=== PATIENT | female | born 1960 | race Asian ===

== ENCOUNTER → 2016-07-13 | Outpatient (CLI) | payer MEDICAID, BC ==
--- NOTE | 2016-07-15 08:18 | MM ---
Reason for exam: screening (asymptomatic). Last mammogram was performed 6 years and 3 months ago. History: Patient is postmenopausal. Benign excisional biopsy of the left breast, 1983. Took hormonal contraceptives for 5 years. Physical Findings: A clinical breast exam by your physician is recommended on an annual basis and results should be correlated with mammographic findings. MG 3D Screening Mammo W/Cad Bilateral CC and MLO view(s) were taken. Prior study comparison: April 08, 2010, bilateral digital screening mammogram. The breast tissue is heterogeneously dense. This may lower the sensitivity of mammography. No significant changes when compared with prior studies. ASSESSMENT: Negative, BI-RAD 1 RECOMMENDATION: Routine screening mammogram of both breasts in 1 year.
== END | disposition home or self-care (01) ==
LOC: RADMAMWWP 14:50
PROVIDERS: ATTEND Internal Medicine
DX: Z12.31 Encounter for screening mammogram for malignant neoplasm of breast (principal)
CPT/HCPCS: 77052; 77063; G0202

== ENCOUNTER → 2020-01-11 | Outpatient (CLI) | payer MEDICAID, BC | END | disposition home or self-care (01) | LOC: LABWHC1 08:18 | PROVIDERS: ATTEND Pediatrics Pediatric Infectious Diseases | DX: Z11.59 Encounter for screening for other viral diseases (principal) | CPT/HCPCS: U0003; C9803 ==

== ENCOUNTER 2020-01-20 04:16 | Observation (INO) | payer MEDICAID, BC ==
[2020-01-20] MEDS ORDERED: ASPIRIN 81 MG PO STA (04:50)
[2020-01-20] MEDS ORDERED: MECLIZINE 12.5 MG TAB PO STA (04:50)
[2020-01-20 05:08] LABS: Basophils % (A) 1 %; Eosinophils # (A) 0.2 k/uL (0-0.7); Eosinophils % (A) 3 %; HCT 35.9 % (34.0-46.0); HGB 11.8 gm/dL (11.4-16.0); Lymphocytes % (A) 38 %; MCH 28.2 pg (25.0-35.0); MCHC 32.7 g/dL (31.0-37.0); MCV 86.2 fL (80.0-100.0); Mean Platelet Volume 7.3; Monocytes # (A) 0.3 k/uL (0-1.0); Monocytes % (A) 5 %; Neutrophils # (A) 2.7 k/uL (1.3-7.7); Neutrophils % (A) 51 %; Platelet Count 188 k/uL (150-450); RBC 4.17 m/uL (3.80-5.40); RDW 12.5 % (11.5-15.5); WBC 5.3 k/uL (3.8-10.6)
[2020-01-20 05:33] LABS: Partial Thromboplastin Time 23.4 sec (22.0-30.0); Prothrombin Time 10.1 sec (9.0-12.0)
[2020-01-20 05:35] LABS: ALT 8 U/L (4-34); AST 26 U/L (14-36); African American GFR (CKD) >90 (>60 ml/min/1.73 sqM); Albumin 4.4 g/dL (3.5-5.0); Alkaline Phosphatase 53 U/L (38-126); Anion Gap 8 mmol/L; Blood Urea Nitrogen 18 mg/dL (7-17); Calcium 9.3 mg/dL (8.4-10.2); Carbon Dioxide 26 mmol/L (22-30); Chloride 103 mmol/L (98-107); Glucose 99 mg/dL (74-99); Magnesium 1.8 mg/dL (1.6-2.3); Non-African American GFR(CKD) >90 (>60 ml/min/1.73 sqM); Potassium 3.4 mmol/L (3.5-5.1); Sodium 137 mmol/L (137-145); Total Bilirubin 0.4 mg/dL (0.2-1.3); Total Protein 7.4 g/dL (6.3-8.2)
[2020-01-20] MEDS ORDERED: NITROGLYCERIN SL TABS 0.4 MG TAB SUBLINGUAL PRN (06:55)
[2020-01-20] MEDS ORDERED: POTASSIUM CHLORIDE ER 20 MEQ TAB.ER PO STA ×2 (07:03→09:20)
--- NOTE | 2020-01-20 07:03 | ED ---
General Adult HPI - General Chief complaint: Dizziness Stated complaint: Confusion,Dizziness,Nausea Time Seen by Provider: 01/20/20 04:38 Source: patient Mode of arrival: ambulatory Limitations: no limitations - History of Present Illness Initial comments: This patient is a 59-year-old woman who presents to be evaluated for constellation of symptoms that came on when she woke up this morning. Patient states that she had been sleeping and then woke up feeling very disoriented and not sure where she was. She also noticed that when she sat upright she was feeling very lightheaded like she may pass out. She is also describing it as a dizzy feeling but not vertiginous. The patient also noted pain along the left jaw, her neck and radiation to left upper extremity with some numbness and tingling. Patient had a similar episode and was seen by certified ophthalmic technician as well as having echocardiogram and carotid Doppler, but then on no further follow-up. -: hour(s) Location: neck, chest Radiation: extremity Quality: aching Consistency: constant Improves with: none Worsens with: none Associated Symptoms: other (Lightheaded) Treatments Prior to Arrival: none - Related Data Home Medications Medication Instructions Recorded Confirmed Aspirin 325 mg PO DAILY PRN 03/30/16 03/30/16 Ibuprofen [Motrin] 200 - 400 mg PO Q6H PRN 03/30/16 03/30/16 Allergies Allergy/AdvReac Type Severity Reaction Status Date / Time No Known Allergies Allergy Verified 01/20/20 04:30 Review of Systems ROS Statement: Those systems with pertinent positive or pertinent negative responses have been documented in the HPI. ROS Other: All systems not noted in ROS Statement are negative. Constitutional: Denies: fever, chills Respiratory: Denies: cough, dyspnea Cardiovascular: Reports: chest pain. Denies: palpitations, orthopnea, syncope Gastrointestinal: Denies: abdominal pain, nausea, vomiting, diarrhea, melena, hematochezia Genitourinary: Denies: dysuria Musculoskeletal: Denies: back pain Skin: Denies: rash Neurological: Denies: headache, weakness, numbness Past Medical History Past Medical History: No Reported History, Hyperlipidemia Past Surgical History: Tubal Ligation Past Psychological History: No Psychological Hx Reported Smoking Status: Never smoker Past Alcohol Use History: None Reported Past Drug Use History: None Reported General Exam Limitations: no limitations General appearance: alert, in no apparent distress Head exam: Present: atraumatic, normocephalic Eye exam: Present: normal appearance. Absent: scleral icterus, conjunctival injection Neck exam: Present: normal inspection, full ROM Respiratory exam: Present: normal lung sounds bilaterally. Absent: respiratory distress, wheezes, rales, rhonchi, stridor Cardiovascular Exam: Present: regular rate, normal rhythm, normal heart sounds. Absent: systolic murmur, diastolic murmur, rubs, gallop GI/Abdominal exam: Present: soft. Absent: distended, tenderness, guarding, rebound, rigid Extremities exam: Present: normal inspection, normal capillary refill. Absent: pedal edema, calf tenderness Back exam: Present: normal inspection. Absent: CVA tenderness (R), CVA tenderness (L) Neurological exam: Present: alert Skin exam: Present: warm, dry, intact, normal color. Absent: rash Course Vital Signs 01/20/20 01/20/20 01/20/20 04:26 05:30 06:55 Temperature 98.0 F 98.2 F 97.5 F L Pulse Rate 57 L 52 L 58 L Respiratory 16 16 16 Rate Blood Pressure 120/76 117/72 121/68 O2 Sat by Pulse 99 97 99 Oximetry EKG Findings - EKG Results: EKG: interpreted by TAMERA, sinus rhythm (Rate 54 bpm), normal axis, normal ST/T EKG shows: bradycardia - Blocks, [place], Hypertrophy, ST Abn: AV and intraventricular conduction: right bundle branch block (f ixed/intermittent, complete/incomplete) (Incomplete) Medical Decision Making - Medical Decision Making This patient is a 59-year-old woman presenting to be evaluated for a constellation of symptoms including neck and left upper extremity pain that were relieved with the nitroglycerin here. Her initial workup is negative. Patient be admitted for serial cardiac enzymes and telemetry monitoring as well as cardiology consultation. - Lab Data Result diagrams: 01/20/20 05:00 01/20/20 05:12 Lab Results 01/20/20 01/20/20 01/20/20 Range/Units 05:00 05:12 05:12 WBC 5.3 (3.8-10.6) k/uL RBC 4.17 (3.80-5.40) m/uL Hgb 11.8 (11.4-16.0) gm/dL Hct 35.9 (34.0-46.0) % MCV 86.2 (80.0-100.0) fL MCH 28.2 (25.0-35.0) pg MCHC 32.7 (31.0-37.0) g/dL RDW 12.5 (11.5-15.5) % Plt Count 188 (150-450) k/uL Neutrophils % 51 % Lymphocytes % 38 % Monocytes % 5 % Eosinophils % 3 % Basophils % 1 % Neutrophils # 2.7 (1.3-7.7) k/uL Lymphocytes # 2.0 (1.0-4.8) k/uL Monocytes # 0.3 (0-1.0) k/uL Eosinophils # 0.2 (0-0.7) k/uL Basophils # 0.0 (0-0.2) k/uL PT (9.0-12.0) sec INR (<1.2) APTT (22.0-30.0) sec Sodium 137 (137-145) mmol/L Potassium 3.4 L (3.5-5.1) mmol/L Chloride 103 (98-107) mmol/L Carbon Dioxide 26 (22-30) mmol/L Anion Gap 8 mmol/L BUN 18 H (7-17) mg/dL Creatinine 0.64 (0.52-1.04) mg/dL Est GFR (CKD-EPI)AfAm >90 (>60 ml/min/1.73 sqM) Est GFR (CKD-EPI)NonAf >90 (>60 ml/min/1.73 sqM) Glucose 99 (74-99) mg/dL Calcium 9.3 (8.4-10.2) mg/dL Magnesium 1.8 (1.6-2.3) mg/dL Total Bilirubin 0.4 (0.2-1.3) mg/dL AST 26 (14-36) U/L ALT 8 (4-34) U/L Alkaline Phosphatase 53 (38-126) U/L Troponin I <0.012 (0.000-0.034) ng/mL Total Protein 7.4 (6.3-8.2) g/dL Albumin 4.4 (3.5-5.0) g/dL 01/20/20 Range/Units 05:12 WBC (3.8-10.6) k/uL RBC (3.80-5.40) m/uL Hgb (11.4-16.0) gm/dL Hct (34.0-46.0) % MCV (80.0-100.0) fL MCH (25.0-35.0) pg MCHC (31.0-37.0) g/dL RDW (11.5-15.5) % Plt Count (150-450) k/uL Neutrophils % % Lymphocytes % % Monocytes % % Eosinophils % % Basophils % % Neutrophils # (1.3-7.7) k/uL Lymphocytes # (1.0-4.8) k/uL Monocytes # (0-1.0) k/uL Eosinophils # (0-0.7) k/uL Basophils # (0-0.2) k/uL PT 10.1 (9.0-12.0) sec INR 1.0 (<1.2) APTT 23.4 (22.0-30.0) sec Sodium (137-145) mmol/L Potassium (3.5-5.1) mmol/L Chloride (98-107) mmol/L Carbon Dioxide (22-30) mmol/L Anion Gap mmol/L BUN (7-17) mg/dL Creatinine (0.52-1.04) mg/dL Est GFR (CKD-EPI)AfAm (>60 ml/min/1.73 sqM) Est GFR (CKD-EPI)NonAf (>60 ml/min/1.73 sqM) Glucose (74-99) mg/dL Calcium (8.4-10.2) mg/dL Magnesium (1.6-2.3) mg/dL Total Bilirubin (0.2-1.3) mg/dL AST (14-36) U/L ALT (4-34) U/L Alkaline Phosphatase (38-126) U/L Troponin I (0.000-0.034) ng/mL Total Protein (6.3-8.2) g/dL Albumin (3.5-5.0) g/dL Disposition Clinical Impression: Chest pain Disposition: ADMITTED IP TO THIS [facility] Condition: Good Referrals: Michelle Gordillo MD [Primary Care Provider] - 1-2 days
[2020-01-20] MEDS ORDERED: PROMETHAZINE INJ 25 MG in SODIUM CHLORIDE 0.9% 50 ML IVPB STA (07:23)
[2020-01-20] MEDS ORDERED: ONDANSETRON 4 MG/2 ML VIAL IVP PRN (09:22)
--- NOTE | 2020-01-20 09:52 | XR ---
EXAM: XR Chest, 1 View CLINICAL HISTORY: Reason: chest pain TECHNIQUE: Frontal view of the chest. COMPARISON: 03/30/16 FINDINGS: Lungs: No evidence of airspace consolidation. No pulmonary edema. Pleural space: Unremarkable. No pneumothorax. Heart: Unremarkable. No cardiomegaly. Mediastinum: Unremarkable. No mediastinal widening or shift. Bones/joints: Unremarkable. IMPRESSION: No evidence of acute cardiopulmonary abnormality.
--- NOTE | 2020-01-20 11:27 | P.HPIM ---
History of Present Illness H&P Date: 01/20/20 Judah Tran, is a 59-year-old female who presented to [facility] emergency room was multiple symptoms including dizziness, nausea and vomiting, and chest pain, patient stated that she has been having cough for about 10 days she was checked for Covid 19 on 01/11/2020 PCR was negative at that time, patient started feeling very exhausted and having nausea and vomiting on the day prior to admission she was feeling dizzy and she decided to come to emergency room, patient was evaluated in the emergency room EKG revealed sinus bradycardia with incomplete right bundle-branch block first troponin was negative labs were significant for slight elevation in BUN at 18 with low potas sium at 3.4 otherwise no abnormality was seen patient was admitted to telemetry floor serial EKG and cardiac enzymes were ordered cardiology consultation was requested. Past Medical History Past Medical History: Hyperlipidemia Additional Past Medical History / Comment(s): elevated cholesterol controlled with diet History of Any Multi-Drug Resistant Organisms: None Reported Past Surgical History: Tubal Ligation Past Anesthesia/Blood Transfusion Reactions: No Reported Reaction Past Psychological History: No Psychological Hx Reported Smoking Status: Never smoker Past Alcohol Use History: None Reported Past Drug Use History: None Reported - Past Family History Mother Family Medical History: Pneumonia Additional Family Medical History / Comment(s): sepsis Father Additional Family Medical History / Comment(s): gout Medications and Allergies Home Medications Medication Instructions Recorded Confirmed Type Acetaminophen [Tylenol] 500 mg PO Q4-6H PRN 01/20/20 01/20/20 History Aspirin EC [Ecotrin Low Dose] 81 mg PO DAILY 01/20/20 01/20/20 History Allergies Allergy/AdvReac Type Severity Reaction Status Date / Time No Known Allergies Allergy Verified 01/20/20 07:36 Physical Exam Vitals: Vital Signs Temp Pulse Pulse Resp BP BP Pulse Ox 01/20/20 08:56 98 F 54 L 16 121/67 100 01/20/20 08:11 98.1 F 64 16 116/70 99 01/20/20 06:55 97.5 F L 58 L 16 121/68 99 01/20/20 05:30 98.2 F 52 L 16 117/72 97 01/20/20 04:26 98.0 F 57 L 16 120/76 99 Intake and Output 01/19/20 01/20/2020 22:59 06:59 14:59 Output Total 300 Balance -300 Output: Urine 300 Other: Weight 58.513 kg 58.513 kg In general patient is alert and oriented 3 in no apparent distress HEENT head normocephalic and atraumatic Neck is supple no JVD no goiter no lymphadenopathy Chest exam reveals a few scattered crackles no wheezing Cardiac exam reveals regular heart sounds no gallops no murmurs Abdomen is soft nontender no organomegaly with normal bowel sounds Extremity exam reveals no edema no cyanosis or clubbing Neurological examination reveals no gross focal deficit Results CBC & Chem 7: 01/20/20 05:00 01/20/20 05:12 Labs: Abnormal Lab Results - Last 24 Hours (Table) 01/20/20 Range/Units 05:12 Potassium 3.4 L (3.5-5.1) mmol/L BUN 18 H (7-17) mg/dL Thrombosis Risk Factor Assmnt - Choose All That Apply Each Factor Represents 1 point: Age 41-60 years, Obesity (BMI >25) Other congenital or acquired thrombophilia - If yes, enter type in comment: No Thrombosis Risk Factor Assessment Total Risk Factor Score: 2 Thrombosis Risk Factor Assessment Level: Low Risk Assessment and Plan Plan: 1. Episode of chest pain, serial EKG and cardiac enzymes are ordered to rule out myocardial infarction, cardiology consultation was requested, d-dimer was ordered 2. Nausea or vomiting with dizziness and evidence of dehydration, patient was started on IV fluid, will monitor labs in a.m. 3. Hypokalemia correcting 4. Underlying history of hyperlipidemia maintained on diet control At this time will monitor patient's progress and labs Possible discharge to home in a.m. tomorrow
--- NOTE | 2020-01-20 13:47 | P.CRDCN ---
History of Present Illness Consult date: 01/20/20 Reason for Consult (text): Chest pressure Chief complaint: Chest pressure History of present illness: HISTORY OF PRESENT ILLNESS AND PLAN: This is a 59-year-old female with history of hyperlipidemia who presented to ER with multiple symptoms including, nausea, dizziness, cough x 1 week and disorientation when she awoke in the middle of the night. Patient states she feels so lightheaded that she felt like passing out. Patient also describes having chest pressure in the midsternal area that radiated to her left jaw and left upper extremity with some numbness and tingling. Pt currently lying in bed with continued complaints of lightheadedness/dizziness patient also states she had an episode of vomiting. Patient states she was off of work for approximately one week due to feeling fatigue/weakness/dizziness and persistant cough. Awaiting COVID 19 testing. D dimer this admission WNL. Troponins negative 3. Patient sinus rhythm on monitor heart rate 54. Vital signs stable, patient afebrile. Potassium low at 3.4 but was already replaced this day. No smoking. No DM. Will check d-dimer. SIGNIFICANT PAST MEDICAL HISTORY: Hyperlipidemia PAST SURGICAL HISTORY: See list. EKG = SB, HR 54 Troponins negative x 3 SIGNIFICANT LABORATORY VALUES: Chest x-ray 01/20/2020 = No acute process Most recent echo 04/09/2014 = EF 55-60% Most recent carotid ultrasound 03/30/2016 = No significant ICA stenosis bi laterally REVIEW OF SYSTEMS: CONSTITUTIONAL: Denies fever. Denies chills. Complains of fatigue EYES: Denies blurred vision. Denies blurred vision or vision changes. Denies eye pain. EARS, NOSE, MOUTH & THROAT: Denies headache. Denies sore throat. Denies ear pain. Denies hemoptysis. CARDIOVASCULAR: Complains of chest pain, shortness of breath and chest pressure. Denies orthopnea. Denies PND. Denies palpitations. RESPIRATORY: Complains of cough and shortness of breath. GASTROINTESTINAL: Denies abdominal pain or distention. Denies diarrhea. Denies constipation. Denies nausea. Complaints of nausea and vomiting. MUSCULOSKELETAL: Complaints of myalgias. INTEGUMENTARY: Denies pruitis. Denies rash. ENDOCRINE: Complains fatigue. Denies weight change. Denies polydipsia. Denies polyurina Denies heat/cold intolerance. GENITOURINARY: Denies burning, hematuria or urgency with micturation. HEMATOLOGIC: Denies history of anemia. Denies bleeding. NEUROLOGIC: Denies numbness. Denies tingling. Denies weakness. PSYCHIATRIC: Denies anxiety. Denies depression. PHYSICAL EXAM: GENERAL: Well developed, in mild distress with nausea. HEENT: Head is atraumatic, normocephalic. Pupils are equal, round. Extra ocular movements intact. Mucous membranes moist. Neck supple. No JVD. No carotid bruit. No thyromegaly. LUNGS: Clear to auscultation. No wheezes, rales or rhonchi. No chest wall tenderness on palpation or with deep breathing. HEART: Regular rate and rhythm, no rubs or gallops. S1 and S2 heard. No murmur. ABDOMEN: Abdominal exam, WNL. Bowel sounds x4 quads. Soft, non-tender, without masses, organomegaly, or abdominal aorta enlargement. EXTREMITIES/VASCULAR: Extremities have easily palpable radial, femoral, dorsalis pedis and posterior tibial pulses. No cyanosis, calf tenderness. No BLE edema. NEUROLOGIC: Patient is awake, alert and oriented x3. No focal neurologic abnormalities. FINAL IMPRESSION: 1. Atypical chest pain, no acute cardiology process 2. Hypokalemia, replaced 3. Nausea with vomiting 4. Dizziness 5. Fatigue PLAN: Atypical chest pain. No acute cardiology process. D-Dimer, WNL. Will check echocardiogram this visit. Pt to stress testing on an outpatient basis. 2 weeks follow-up with Dr. MILVIA Palmer on discharge. Nurse Practitioner note has been reviewed by the Physician. Signing provider agrees with the documented findings, assessment and plan of care. Past Medical History Past Medical History: Hyperlipidemia Additional Past Medical History / Comment(s): elevated cholesterol controlled with diet History of Any Multi-Drug Resistant Organisms: None Reported Past Surgical History: Tubal Ligation Past Anesthesia/Blood Transfusion Reactions: No Reported Reaction Past Psychological History: No Psychological Hx Reported Smoking Status: Never smoker Past Alcohol Use History: None Reported Past Drug Use History: None Reported - Past Family History Mother Family Medical History: Pneumonia Additional Family Medical History / Comment(s): sepsis Father Additional Family Medical History / Comment(s): gout Medications and Allergies Home Medications Medication Instructions Recorded Confirmed Type Acetaminophen [Tylenol] 500 mg PO Q4-6H PRN 07/18/20 07/18/20 History Aspirin EC [Ecotrin Low Dose] 81 mg PO DAILY 01/20/20 01/20/20 History Allergies Allergy/AdvReac Type Severity Reaction Status Date / Time No Known Allergies Allergy Verified 01/20/20 07:36 Physical Exam Vitals: Vital Signs Temp Pulse Pulse Resp BP BP Pulse Ox 01/20/20 09:00 16 01/20/20 08:56 98 F 54 L 16 121/67 100 01/20/20 08:11 98.1 F 64 16 116/70 99 01/20/20 06:55 97.5 F L 58 L 16 121/68 99 01/20/20 05:30 98.2 F 52 L 16 117/72 97 01/20/20 04:26 98.0 F 57 L 16 120/76 99 Intake and Output 01/19/20 01/20/20 01/20/20 22:59 06:59 14:59 Output Total 300 Balance -300 Output: Urine 300 Other: Voiding Method Toilet Weight 58.513 kg 58.513 kg Results 01/20/20 05:00 01/20/20 05:12 Cardiac Enzymes 01/20/20 01/20/20 01/20/20 Range/Units 05:12 05:12 08:29 AST 26 (14-36) U/L Troponin I <0.012 <0.012 (0.000-0.034) ng/mL 01/20/20 Range/Units 10:42 AST (14-36) U/L Troponin I <0.012 (0.000-0.034) ng/mL Coagulation 01/20/20 Range/Units 05:12 PT 10.1 (9.0-12.0) sec APTT 23.4 (22.0-30.0) sec CBC 01/20/20 Range/Units 05:00 WBC 5.3 (3.8-10.6) k/uL RBC 4.17 (3.80-5.40) m/uL Hgb 11.8 (11.4-16.0) gm/dL Hct 35.9 (34.0-46.0) % Plt Count 188 (150-450) k/uL Comprehensive Metabolic Panel 01/20/20 Range/Units 05:12 Sodium 137 (137-145) mmol/L Potassium 3.4 L (3.5-5.1) mmol/L Chloride 103 (98-107) mmol/L Carbon Dioxide 26 (22-30) mmol/L BUN 18 H (7-17) mg/dL Creatinine 0.64 (0.52-1.04) mg/dL Glucose 99 (74-99) mg/dL Calcium 9.3 (8.4-10.2) mg/dL AST 26 (14-36) U/L ALT 8 (4-34) U/L Alkaline Phosphatase 53 (38-126) U/L Total Protein 7.4 (6.3-8.2) g/dL Albumin 4.4 (3.5-5.0) g/dL Current Medications Generic Name Dose Route Start Last Admin Trade Name Freq PRN Reason Stop Dose Admin Aspirin 325 mg 01/21/20 09:00 Aspirin PO DAILY ROC Nitroglycerin 0.4 mg 01/20/20 06:55 Nitrostat SUBLINGUAL Q5M PRN Chest Pain Ondansetron HCl 4 mg 01/20/20 09:22 Zofran IVP Q6HR PRN Nausea And Vomiting Sodium Chloride 10 ml 01/20/20 09:00 Saline Flush IV BID ROC Intake and Output 01/19/20 01/20/20 01/20/20 22:59 06:59 14:59 Output Total 300 Balance -300 Output: Urine 300 Other: Voiding Method Toilet Weight 58.513 kg 58.513 kg Patient Weight 01/21/20 06:59 Weight 58.513 kg 01/20/20 05:00 01/20/20 05:12 - EKG Interpretation EKG: sinus rhythm
--- NOTE | 2020-01-20 15:38 | ECHOF ---
Referral Reason:chest pain MEASUREMENTS -------- HEIGHT: 152.4 cm WEIGHT: 58.5 kg BP: RVIDd: 2.3 cm (< 3.3) IVSd: 0.8 cm (0.6 - 1.1) LVIDd: 3.8 cm (3.9 - 5.3) LVPWd: 0.8 cm (0.6 - 1.1) IVSs: 1.2 cm LVIDs: 1.8 cm LVPWs: 1.2 cm LAESV Index (A-L): 22.93 ml/m Ao Diam: 2.5 cm (2.0 - 3.7) AV Cusp: 1.7 cm (1.5 - 2.6) LA Diam: 2.8 cm (2.7 - 3.8) MV EXCURSION: 13.059 mm (> 18.000) MV EF SLOPE: 76 mm/s (70 - 150) EPSS: 0.6 cm MV E Zeeshan: 0.85 m/s MV DecT: 262 ms MV A Zeeshan: 1.17 m/s MV E/A Ratio: 0.73 RAP: 5.00 mmHg RVSP: 21.84 mmHg FINDINGS -------- Resting bradycardia (HR<60bpm). This was a technically good study. Left ventricular wall thickness is normal. Overall left ventricular systolic function is normal wit h, an EF between 55 - 60 %. The diastolic filling pattern is normal for the age of the patient 12.4 2. The right ventricle is normal in size. The left atrial size is normal. Normal LA size by volume 22+/-6 ml/m2. The right atrial size is normal. Interatrial and interventricular septum intact. The aortic valve is trileaflet and appears structurally normal. The mitral valve is normal. There is trace mitral regurgitation. The tricuspid valve appears structurally normal. Mild tricuspid regurgitation present. Right vent ricular systolic pressure is normal at < 35 mmHg. There is no pulmonic regurgitation present. The aortic root size is normal. Normal inferior vena cava with normal inspiratory collapse consistent with estimated right atrial pre ssure of 5 mmHg. There is no pericardial effusion. CONCLUSIONS -------- 1. Overall left ventricular systolic function is normal with, an EF between 55 - 60 %. 2. The diastolic filling pattern is normal for the age of the patient 12.42 3. There is trace mitral regurgitation. 4. Mild tricuspid regurgitation present. ADMINISTRATIVE PROFESSIONAL: Lesly Glass RDCS
[2020-01-21 07:24] LABS: Basophils % (A) 1 %; Eosinophils # (A) 0.1 k/uL (0-0.7); Eosinophils % (A) 3 %; HCT 38.5 % (34.0-46.0); HGB 12.1 gm/dL (11.4-16.0); Lymphocytes # (A) 2.2 k/uL (1.0-4.8); Lymphocytes % (A) 44 %; MCH 27.4 pg (25.0-35.0); MCHC 31.5 g/dL (31.0-37.0); MCV 87.1 fL (80.0-100.0); Mean Platelet Volume 7.5; Monocytes # (A) 0.2 k/uL (0-1.0); Monocytes % (A) 5 %; Neutrophils # (A) 2.2 k/uL (1.3-7.7); Neutrophils % (A) 44 %; Platelet Count 180 k/uL (150-450); RBC 4.42 m/uL (3.80-5.40); RDW 12.7 % (11.5-15.5)
[2020-01-21 07:39] LABS: ALT 8 U/L (4-34); AST 27 U/L (14-36); African American GFR (CKD) >90 (>60 ml/min/1.73 sqM); Albumin 4.5 g/dL (3.5-5.0); Alkaline Phosphatase 46 U/L (38-126); Anion Gap 8 mmol/L; Blood Urea Nitrogen 16 mg/dL (7-17); Calcium 9.6 mg/dL (8.4-10.2); Carbon Dioxide 27 mmol/L (22-30); Chloride 105 mmol/L (98-107); Cholesterol 234 mg/dL (<200); Glucose 90 mg/dL (74-99); HDL Cholesterol 61 mg/dL (40-60); LDL Cholesterol,Calculated 140 mg/dL (0-99); Non-African American GFR(CKD) >90 (>60 ml/min/1.73 sqM); Potassium 4.4 mmol/L (3.5-5.1); Sodium 140 mmol/L (137-145); Total Bilirubin 0.6 mg/dL (0.2-1.3); Total Protein 7.8 g/dL (6.3-8.2); Triglycerides 163 mg/dL (<150)
[2020-01-21] MEDS ORDERED: ASPIRIN 325 MG TAB PO SCH (09:00)
--- NOTE | 2020-01-21 10:33 | P.PN ---
Subjective HISTORY OF PRESENTING ILLNESS This is a pleasant 59-year-old female past medical history significant for dyslipidemia. She is seen and examined sitting in bed laying flat resting comfortably sleeping. She states she continues to feel increasingly fatigued. She states she woke up early this morning to get up and washout and felt acutely dizzy every time she turned her head. She did ambulate to the bathroom without difficulty. She has had no syncope. She has had no further symptoms of chest discomfort. Echocardiogram obtained yesterday reveals preserved LV systolic function with ejection fraction 55-60%. Blood pressure 127/75 heart rate 57 afebrile maintaining oxygen saturation on room air. Laboratory data reviewed, CBC unremarkable, d-dimer 0.26, sodium 140, potassium 4.4, creatinine 0.7 LDL 140, HDL 61, total cholesterol 234. Telemetry tracings indicate sinus bradycardia while sleeping. PHYSICAL EXAMINATION CONSTITUTIONAL: No apparent distress. HEENT: Head is normocephalic. Pupils are equal, round. Sclerae anicteric. Mucous membranes of the mouth are moist. No JVD. No carotid bruit. CHEST EXAMINATION: Lungs are clear to auscultation. No chest wall tenderness is noted on palpation or with deep breathing. HEART EXAMINATION: Regular rate and rhythm. S1, S2 heard. No murmurs, gallops or rub. EXTREMITIES: 2+ peripheral pulses, no lower extremity edema and no calf tenderness. ASSESSMENT Chest pain, an acute coronary event has been ruled out. Dizziness suggestive of vertigo Dyslipidemia Nocturnal sinus bradycardia PLAN Initiate Antivert 25 mg twice a day and assess for relief of dizziness. Obtain computed tomography scan of the brain. Request ENT consultation. Will pursue outpatient stress testing when vertigo improves. Suggest outpatient sleep study. Nurse Practitioner note has been reviewed, I agree with a documented findings and plan of care. Patient was seen and examined. Objective - Vital Signs Vital signs: Vital Signs Temp 97.9 F 01/21/20 07:39 Pulse 57 L 01/21/20 07:39 Resp 16 01/21/20 07:39 BP 127/75 01/21/20 07:39 Pulse Ox 98 01/21/20 07:39 Intake & Output 01/20/20 01/21/20 01/21/20 18:59 06:59 18:59 Intake Total 240 240 Output Total 300 1000 Balance -60 -1000 240 Weight 58.513 kg Intake: Oral 240 240 Output: Urine 300 1000 Other: Voiding Method Toilet Toilet # Voids 1 # Bowel Movements 2 - Labs CBC & Chem 7: 01/21/20 06:06 01/21/20 06:06 Labs: Abnormal Lab Results - Last 24 Hours (Table) 01/21/20 Range/Units 06:06 Triglycerides 163 H (<150) mg/dL Cholesterol 234 H (<200) mg/dL LDL Cholesterol, Calc 140 H (0-99) mg/dL HDL Cholesterol 61 H (40-60) mg/dL
[2020-01-21] MEDS: MECLIZINE 25 MG TAB PO SCH ×2 (10:35→20:57)
--- NOTE | 2020-01-21 11:14 | P.PN ---
Subjective Progress Note Date: 01/21/20 Judah Tran, is a 59-year-old female who presented to [facility] emergency room was multiple symptoms including dizziness, nausea and vomiting, and chest pain, patient stated that she has been having cough for about 10 days she was checked for Covid 19 on 01/11/2020 PCR was negative at that time, patient started feeling very exhausted and having nausea and vomiting on the day prior to admission she was feeling dizzy and she decided to come to emergency room, patient was evaluated in the emergency room EKG revealed sinus bradycardia with incomplete right bundle-branch block first troponin was negative labs were significant for slight elevation in BUN at 18 with low potassium at 3.4 otherwise no abnormality was seen patient was admitted to telemetry floor serial EKG and cardiac enzymes were ordered cardiology consultation was requested. On 01/21/2020 patient was seen and examined on the medical floor, she is alert and oriented 3 in no apparent distress, she is still complaining of dizziness, and is complaining of diarrhea today, otherwise she denies any complaints there is no fever or chills no headache or dizziness no new episodes of chest pain no shortness of breath no cough no nausea or vomiting no abdominal pain no burning with urination no frequency or urgency and no hematuria, stools for C. diff was ordered Objective - Vital Signs Vital signs: Vital Signs Temp 97.9 F 01/21/20 07:39 Pulse 57 L 01/21/20 07:39 Resp 16 01/21/20 07:39 BP 127/75 01/21/20 07:39 Pulse Ox 98 01/21/20 07:39 Intake & Output 01/20/20 01/21/20 01/21/20 18:59 06:59 18:59 Intake Total 240 240 Output Total 300 1000 1000 Balance -60 -1000 -760 Weight 58.513 kg Intake: Oral 240 240 Output: Urine 300 1000 1000 Other: Voiding Method Toilet Toilet # Voids 1 # Bowel Movements 2 3 - Exam In general patient is alert and oriented 3 in no apparent distress HEENT head normocephalic and atraumatic Neck is supple no JVD no goiter no lymphadenopathy Chest exam reveals a few scattered crackles no wheezing Cardiac exam reveals regular heart sounds no gallops no murmurs Abdomen is soft nontender no organomegaly with normal bowel sounds Extremity exam reveals no edema no cyanosis or clubbing Neurological examination reveals no gross focal deficit - Labs CBC & Chem 7: 01/21/20 06:06 01/21/20 06:06 Labs: Abnormal Lab Results - Last 24 Hours (Table) 01/21/20 Range/Units 06:06 Triglycerides 163 H (<150) mg/dL Cholesterol 234 H (<200) mg/dL LDL Cholesterol, Calc 140 H (0-99) mg/dL HDL Cholesterol 61 H (40-60) mg/dL Assessment and Plan Plan: 1. Episode of chest pain, serial EKG and cardiac enzymes are ordered to rule out myocardial infarction, cardiology consultation was requested, d-dimer was ordered 2. Nausea or vomiting with dizziness and evidence of dehydration, patient was started on IV fluid, will monitor labs in a.m. 3. Hypokalemia correcting 4. Underlying history of hyperlipidemia maintained on diet control 5. Diarrhea, will check stools for C. diff 6. Dizziness, computed tomography scan of the brain was done and results are still pending At this time will monitor patient's progress and labs Possible discharge to home in a.m. tomorrow
--- NOTE | 2020-01-21 11:36 | CT ---
EXAMINATION TYPE: CT brain wo con DATE OF EXAM: 01/21/2020 COMPARISON: Previous study dated 03/30/2016 HISTORY: Dizziness CT DLP: 961.1 mGycm Automated exposure control for dose reduction was used. FINDINGS: Central structures are midline. There is no evidence of hydrocephalus. No acute focal lesion, mass ef fect or midline shift is seen. I do not see evidence of intracranial blood. Visualized portions of the paranasal sinuses and mastoids are clear. IMPRESSION: NO ACUTE INTRACRANIAL ABNORMALITY.
[2020-01-22 08:12] VITALS: BP 132/75; PULSE 62; RESP 16; TEMP 98
[2020-01-22] MEDS: MECLIZINE 25 MG TAB PO SCH (08:51)
--- NOTE | 2020-01-22 08:55 | P.DS ---
Providers Date of admission: 01/20/20 06:55 Expected date of discharge: 01/22/20 Attending physician: Michelle Gordillo Consults: 01/20/20 06:55 Consult Physician Routine Consulting Provider: Garima Palmer Consult Reason/Comments: chest pain Do you want consulting provider notified?: Yes 01/21/20 10:02 Consult Physician Routine Consulting Provider: Zachary Britt Reason/Comments: ongoing vertigo Do you want consulting provider notified?: Yes Primary care physician: [facility] Hospital Course: Diagnoses on discharge: 1. Episode of chest pain, serial EKG and cardiac enzymes are ordered to rule out myocardial infarction, cardiology consultation was requested, d-dimer was negative, patient will follow-up with cardiology as outpatient for stress test in the next 1-2 weeks 2. Nausea or vomiting with dizziness and evidence of dehydration, patient was started on IV fluid, will monitor labs in a.m. 3. Hypokalemia correcting 4. Underlying history of hyperlipidemia maintained on diet control 5. Gastroenteritis with nausea vomiting and diarrhea, stools for C. diff was negative, likely viral syndrome, improved 6. Dizziness, computed tomography scan of the brain was done and did not reveal any acute abnormality, patient given meclizine with some improvement in symptoms, dizziness either related to dehydration or 2 in her ear etiology will continue course of meclizine at the time of discharge. Hospital course: uJdah Tran, is a 59-year-old female who presented to [facility] emergency room was multiple symptoms including dizziness, nausea and vomiting, and chest pain, patient stated that she has been having cough for about 10 days she was checked for Covid 19 on 01/11/2020 PCR was negative at that time, patient started feeling very exhausted and having nausea and vomiting on the day prior to admission she was feeling dizzy and she decided to come to emergency room, patient was evaluated in the emergency room EKG revealed sinus bradycardia with incomplete right bundle-branch block first troponin was negative labs were significant for slight elevation in BUN at 18 with low potassium at 3.4 otherwise no abnormality was seen patient was admitted to telemetry floor serial EKG and cardiac enzymes were ordered cardiology consultation was requested. On 01/21/2020 patient was seen and examined on the medical floor, she is alert and oriented 3 in no apparent distress, she is still complaining of dizziness, and is complaining of diarrhea today, otherwise she denies any complaints there is no fever or chills no headache or dizziness no new episodes of chest pain no shortness of breath no cough no nausea or vomiting no abdominal pain no burning with urination no frequency or urgency and no hematuria, stools for C. diff was ordered On 01/22/2020 patient was seen and examined on the medical floor she is alert and oriented in no apparent distress she is feeling better she is still having some dizziness otherwise she denies any complaints her diarrhea subsided, his no nausea or vomiting no abdominal pain no fever or chills no chest pain or shortness of breath no cough and no urinary symptoms Patient Condition at Discharge: Good Plan - Discharge Summary New Discharge Prescriptions: New Meclizine [Antivert] 25 mg PO BID tab Continue Aspirin EC [Ecotrin Low Dose] 81 mg PO DAILY Acetaminophen [Tylenol] 500 mg PO Q4-6H PRN PRN Reason: Pain Or Fever > 100.5 Discharge Medication List Acetaminophen [Tylenol] 500 mg PO Q4-6H PRN 01/20/20 [History] Aspirin EC [Ecotrin Low Dose] 81 mg PO DAILY 01/20/20 [History] Meclizine [Antivert] 25 mg PO BID tab 01/22/20 [Rx] Follow up Appointment(s)/Referral(s): Garima Palmer MD [STAFF PHYSICIAN] - 2 Weeks Michelle Gordillo MD [Primary Care Provider] - 1-2 days
[2020-01-22] MEDS ORDERED: ASPIRIN 81 MG PO SCH (09:00)
--- NOTE | 2020-01-22 10:01 | P.PN ---
Subjective HISTORY OF PRESENTING ILLNESS This is a pleasant 59-year-old female past medical history significant for dyslipidemia. She states her dizziness has improved since starting antivert. No further chest pain, shortness of breath, dizziness, nausea or vomiting. She denies palpitations. CT of the brain was unremarkable. Telemetry tracings indicate sinus tachycardia this morning, asymptomatic. Blood pressure 132/75 heart rate 62 afebrile maintaining oxygen saturation on room air. PHYSICAL EXAMINATION CONSTITUTIONAL: No apparent distress. HEENT: Head is normocephalic. Pupils are equal, round. Sclerae anicteric. Mucous membranes of the mouth are moist. No JVD. No carotid bruit. CHEST EXAMINATION: Lungs are clear to auscultation. No chest wall tenderness is noted on palpation or with deep breathing. HEART EXAMINATION: Regular rate and rhythm. S1, S2 heard. No murmurs, gallops or rub. EXTREMITIES: 2+ peripheral pulses, no lower extremity edema and no calf tenderness. ASSESSMENT Chest pain, an acute coronary event has been ruled out. Dizziness suggestive of vertigo Dyslipidemia Nocturnal sinus bradycardia PLAN Stable for discharge from a cardiac perspective. Will pursue outpatient stress testing when vertigo improves. Suggest outpatient sleep study. Nurse Practitioner note has been reviewed, I agree with a documented findings and plan of care. Patient was seen and examined. Objective - Vital Signs Vital signs: Vital Signs Temp 98.0 F 01/22/20 08:09 Pulse 62 01/22/20 08:09 Resp 16 01/22/20 08:09 BP 132/75 01/22/20 08:09 Pulse Ox 97 01/22/20 08:09 Intake & Output 01/21/20 01/22/20 01/22/20 18:59 06:59 18:59 Intake Total 240 780 Output Total 1000 Balance -760 780 Intake: Oral 240 780 Output: Urine 1000 Other: Voiding Method Toilet Toilet # Voids 2 # Bowel Movements 3 - Labs CBC & Chem 7: 01/21/20 06:06 01/21/20 06:06
== END 2020-01-22 10:50 | disposition home or self-care (01) ==
LOC: EC 04:16 → 3NCARDOBS 06:55
PROVIDERS: ADMIT Internal Medicine; ATTEND Internal Medicine
DX: R07.89 Other chest pain (principal); R42 Dizziness and giddiness; K52.9 Noninfective gastroenteritis and colitis, unspecified; E86.0 Dehydration; E87.6 Hypokalemia; R79.89 Other specified abnormal findings of blood chemistry; E78.00 Pure hypercholesterolemia, unspecified; E78.5 Hyperlipidemia, unspecified; I45.10 Unspecified right bundle-branch block; Z20.828 Contact with and (suspected) exposure to other viral communicable diseases; R05 Cough; R20.0 Anesthesia of skin; R20.2 Paresthesia of skin; R00.1 Bradycardia, unspecified; R00.0 Tachycardia, unspecified; M79.602 Pain in left arm; E66.9 Obesity, unspecified; Z68.25 Body mass index [BMI] 25.0-25.9, adult; Z79.82 Long term (current) use of aspirin; Z98.51 Tubal ligation status; Z83.49 Family history of other endocrine, nutritional and metabolic diseases; Z82.5 Family history of asthma and other chronic lower respiratory diseases
CPT/HCPCS: 93005 ×2; 96374; 99285; 36415; 93306; 85379; 80061; 80053 ×2; 83735; 84484; 85025 ×2; 85610; 85730; 87324; 71045; 70450; G0378 ×3; U0003; J2550

== ENCOUNTER → 2020-01-30 | Outpatient (CLI) | payer MEDICAID, BC | END | disposition home or self-care (01) | LOC: NEUROMAIN 07:34 | PROVIDERS: ATTEND Otolaryngology | DX: Z53.9 Procedure and treatment not carried out, unspecified reason (principal) ==

== ENCOUNTER → 2020-02-05 | Outpatient (CLI) | payer MEDICAID, BC ==
--- NOTE | 2020-02-05 17:18 | P.STRESS ---
- Stress Test Note Stress Test Results/Findings: Exam Performed: stress echo exercise Exam Date: 02/05/20 Reason for Exam: CHEST PAIN Height: 5 ft Weight: 124 kg Protocol: ANTONETTE Stage: 4 Duration of Exercise: 10:00 Resting Heart Rate: 60 Resting Blood Pressure: 115/57 Maximum Achieved Heart Rate: 158 Maximum Achieved Blood Pressure: 153/54 85% PMHR: 136 100% PMHR: 160 METS: 11.7 Technologist Comment: Stress Test Results/Findings: Baseline heart rate 60 beats a minute, Baseline blood pressure 115/57 mmHg Baseline twelve-lead ECG shows sinus rhythm with no ST segments Dobutamine infusion per protocol No ECG evidence of ischemia Occasional PVCs Baseline 2-D echo images was optimal and difficulty contrast was used There was excellent augmentation overall LV contractility without development any wall motion abnormalities At recovery regional global LV systolic function remained normal Impression No ECG evidence of ischemia Occasional PVCs No echocardiographic evidence for ischemia Patient exercised for 10 minutes on a Antonette protocol achieving a peak heart rate 158 beats a minute, normal blood pressure response
== END ==
LOC: RADNMMAIN 09:07
PROVIDERS: ATTEND Internal Medicine Interventional Cardiology
DX: I49.3 Ventricular premature depolarization (principal)
CPT/HCPCS: 93351

== ENCOUNTER → 2020-02-16 | Outpatient (CLI) | payer MEDICAID, BC ==
--- NOTE | 2020-02-18 16:51 | CT ---
EXAMINATION TYPE: CT iac w con DATE OF EXAM: 02/16/2020 COMPARISON: CT brain 01/21/2020 HISTORY: dizziness, vertigo, loss of balance CT DLP: 150 mGycm Automated exposure control for dose reduction was used. CONTRAST: CT scan of the IACs is performed with IV Contrast, patient injected with 100 mL of Isovue 300. FINDINGS: The external auditory canals are patent bilaterally. Mastoid air cells show no evidence of abnormal opacification bilaterally. The middle ear ossicles are symmetric and unremarkable. There is no evidence of suspicious surrounding soft tissue density to suggest cholesteatoma. The scutum is preserved bilaterally. The cochlea and the semicircular canals are symmetric and unremarkable. Ves tibular aqueduct and internal carotid canal appear unremarkable. Temporomandibular joints are mainta ined bilaterally. There is mucosal thickening of the bilateral maxillary sinuses and ethmoid air c ells. There is occlusion of the left sphenoid ostia. IMPRESSION: 1. No significant abnormality seen to account for patient's symptoms. 2. Paranasal sinus disease.
== END | disposition home or self-care (01) ==
LOC: RADCTMAIN 15:13
PROVIDERS: ATTEND Otolaryngology
DX: R42 Dizziness and giddiness (principal); J34.89 Other specified disorders of nose and nasal sinuses
CPT/HCPCS: 70481; Q9967

== ENCOUNTER → 2020-06-26 | Outpatient (CLI) | payer MEDICAID, BC ==
--- NOTE | 2020-06-26 12:49 | XR ---
Lumbar spine HISTORY: Trauma and pain 5 views of the lumbar spine There is no evident spondylolysis or spondylolisthesis. Lumbar vertebral bodies show preserved height with exception of superior endplate of L1 with mild depression, bone mineralization is reduced. Disc spaces are maintained. There is multilevel spondylosis. Sclerosis present in the posterior elements of the lower lumbar spine. No evident retropulsion. There is a calcification in the right paraspinal location measuring 13 mm. IMPRESSION: Osteoporotic superior endplate fracture L1 is mild. Facet arthropathy, mild degenerative disc disease. Low bone mineralization. There is, indeterminate paraspinal location calcification.
--- NOTE | 2020-06-26 12:56 | XR ---
Right hip HISTORY: Trauma and pain 2 views of the right hip Bone mineralization, joint spaces and alignment are maintained. IMPRESSION: No fracture or dislocation.
== END | disposition home or self-care (01) ==
LOC: LABWHC1 11:49
PROVIDERS: ATTEND Internal Medicine
DX: M51.36 Other intervertebral disc degeneration, lumbar region (principal); M47.816 Spondylosis without myelopathy or radiculopathy, lumbar region; M81.0 Age-related osteoporosis without current pathological fracture; M25.551 Pain in right hip
CPT/HCPCS: 72100; 73502

== ENCOUNTER → 2020-07-22 | Outpatient (CLI) | payer MEDICAID, BC ==
--- NOTE | 2020-07-22 13:29 | XR ---
EXAMINATION TYPE: XR lumbar spine 2 or 3V DATE OF EXAM: 07/22/2020 CLINICAL HISTORY: Low back pain for 3 weeks. Fall from bed. TECHNIQUE: Frontal and lateral images of the lumbar spine are obtained. COMPARISON: Lumbar spine x-ray June 26, 2020 FINDINGS: There are 5 lumbar type vertebral bodies redemonstrated. There is persistent is slightly m ore prominent [id number] height loss with step off involving the superior L1 endplate. No exten sujatha to the posterior endplate or posterior retropulsion. Alignment stable and satisfactory. Vertebra l body heights and disc space heights otherwise are satisfactory. Redemonstration of roughly 12 mm ov oid calcification of uncertain etiology as appears anterior medial to the upper pole right kidney, ca lculus not entirely excluded. IMPRESSION: Acute/subacute mild compression type fracture L1 level is confirmed.
== END | disposition home or self-care (01) ==
LOC: RADXRMAIN 12:44
PROVIDERS: ATTEND Orthopaedic Surgery Orthopaedic Surgery of the Spine
DX: S32.018A Other fracture of first lumbar vertebra, initial encounter for closed fracture (principal)
CPT/HCPCS: 72100

== ENCOUNTER → 2020-08-19 | Outpatient (CLI) | payer MEDICAID, BC ==
--- NOTE | 2020-08-19 15:06 | XR ---
EXAMINATION TYPE: XR lumbar spine 2 or 3V DATE OF EXAM: 08/19/2020 COMPARISON: 07/22/2020 HISTORY: Status post fall TECHNIQUE: Three-view lumbar spine FINDINGS: There is a compression deformity of L1 with approximately 25% loss of superior anterior nereida tebral body height. This is similar to the comparison study. No new compression deformity is evident. Disc heights appear preserved. IMPRESSION: 1. Stable L1 superior endplate compression deformity
== END | disposition home or self-care (01) ==
LOC: RADXRMAIN 14:35
PROVIDERS: ATTEND Physician Assistant
DX: M43.8X6 Other specified deforming dorsopathies, lumbar region (principal)
CPT/HCPCS: 72100

== ENCOUNTER → 2020-09-11 | Outpatient (CLI) | payer MEDICAID, BC ==
--- NOTE | 2020-09-11 08:53 | XR ---
EXAMINATION TYPE: XR lumbar spine 2 or 3V DATE OF EXAM: 09/11/2020 CLINICAL HISTORY: L1 wedge compression fracture TECHNIQUE: Frontal and lateral images of the lumbar spine are obtained. COMPARISON: Prior lumbar spine x-ray August 19, 2020 FINDINGS: There are 5 lumbar type vertebral bodies redemonstrated. Persistent mild to moderate anter ior wedging and superior endplate height loss and sclerosis involving L1 vertebra. Posterior vertebra l body margin maintained without retropulsion. Alignment is stable and satisfactory. Vertebral body h eights and disc space heights otherwise maintained. There is 1.1 cm ovoid density right L2 level belo w the 12th rib present gallstone favored over large right renal calculus is redemonstrated. IMPRESSION: As above.
== END ==
LOC: RADXRMAIN 08:21
PROVIDERS: ATTEND Orthopaedic Surgery Orthopaedic Surgery of the Spine
DX: S32.010A Wedge compression fracture of first lumbar vertebra, initial encounter for closed fracture (principal)
CPT/HCPCS: 72100

== ENCOUNTER → 2020-09-11 | Outpatient (CLI) | payer MEDICAID, BC ==
--- NOTE | 2020-09-11 15:47 | BD ---
EXAMINATION TYPE: Axial Bone Density DATE OF EXAM: 09/11/2020 COMPARISON: NONE CLINICAL HISTORY: 60 YR OLD FEMALE....ICD-10 CODE: N95.1 POST MENOPAUSAL Height: 59 Weight: 117 FRAX RISK QUESTIONS: History of Fracture in Adulthood: YES RISK FACTORS HISTORY OF: Spine Fracture: YES, L1, FROM FALL....LAST YR Family History of Osteoporosis: MOM, WITH BROKEN HIP Postmenopausal woman: YES, AT AGE 48 YRS OLD Hyperparathyroidism: NO Adrenal Insufficiency: NO MEDICATIONS: Additional Medications: TRAMADOL, STATIN FOR CHOLESTEROL, MULTIVITAMIN AND B COMPLEX AND VIT D, ANTI NAUSEA MEDS, Additional History: VERTIGO, CHOLESTEROL, PAIN EXAM MEASUREMENTS: Bone mineral densitometry was performed using the [employer] System. Bone mineral density as measured about the Lumbar spine is: ----- L2-L4(G/cm2): 0.990 DID NOT INCLUDE L1....HX OF FX...DOCTOR WANTS SPINE DONE T Score Values are as follows: ----- L2: -1.6 ----- L3: -1.9 ----- L4: -1.8 ----- L2-L4: -1.8 Bone mineral density IS HER FIRST SCAN.....BASELINE STUDY.....PT WEARS LUMBAR BRACE Bone mineral density about the R hip (g/cm2): 1.044 Bone mineral density about the L hip (g/cm2): 0.978 T Score values are as follows: -----R Neck: -1.4 -----L Neck: -1.9 -----R Total: 0.3 -----L Total: -0.2 Bone mineral density IS A BASELINE STUDY FRAX%s: THERE IS A 17.0% CHANCE FOR A MAJOR OSTEOPOROTIC FX AND A 1.3% FOR HIP......PROBABILITY FO R FX IN 10 YRS TIME IMPRESSION: Osteopenia (T Score between -2.5 and -1). There is slightly increased risk of fracture and the patient may be considered for treatment. Re-Screen 2-5 years. NOTE: T-SCORE=SD OF THE YOUNG ADULT MEAN.
== END | disposition home or self-care (01) ==
LOC: RADBDWWP 07:34
PROVIDERS: ATTEND Internal Medicine
DX: M85.80 Other specified disorders of bone density and structure, unspecified site (principal)
CPT/HCPCS: 77080

== ENCOUNTER → 2021-01-09 | Outpatient (CLI) | payer BC ==
[2021-01-09 12:16] LABS: HCT 36.9 % (34.0-46.0); HGB 12.2 gm/dL (11.4-16.0); MCH 28.3 pg (25.0-35.0); MCHC 33.1 g/dL (31.0-37.0); MCV 85.5 fL (80.0-100.0); Mean Platelet Volume 7.1; Platelet Count 219 k/uL (150-450); RBC 4.31 m/uL (3.80-5.40); RDW 12.5 % (11.5-15.5); WBC 4.5 k/uL (3.8-10.6)
[2021-01-09 12:29] LABS: ALT 7 U/L (4-34); AST 28 U/L (14-36); African American GFR (CKD) >90 (>60 ml/min/1.73 sqM); Albumin 4.8 g/dL (3.5-5.0); Albumin/Globulin Ratio 1.5; Alkaline Phosphatase 52 U/L (38-126); Anion Gap 6 mmol/L; Blood Urea Nitrogen 16 mg/dL (7-17); Calcium 10.1 mg/dL (8.4-10.2); Carbon Dioxide 31 mmol/L (22-30); Chloride 105 mmol/L (98-107); Globulin 3.3 g/dL; Glucose 91 mg/dL (74-99); Non-African American GFR(CKD) 83 (>60 ml/min/1.73 sqM); Potassium 4.5 mmol/L (3.5-5.1); Sodium 142 mmol/L (137-145); Total Bilirubin 0.3 mg/dL (0.2-1.3); Total Protein 8.1 g/dL (6.3-8.2)
[2021-01-09 20:07] LABS: Chol/HDL Ratio 3.39; Cholesterol 227 mg/dL (0-200)
--- NOTE | 2021-01-13 15:10 | MM ---
Reason for exam: screening (asymptomatic). Last mammogram was performed 4 years and 6 months ago. History: Patient is postmenopausal. Benign excisional biopsy of the left breast, 1983. Took hormonal contraceptives for 5 years. Physical Findings: A clinical breast exam by your physician is recommended on an annual basis and results should be correlated with mammographic findings. MG Screening Mammo w CAD Bilateral CC and MLO view(s) were taken. Prior study comparison: July 13, 2016, bilateral MG 3d screening mammo w/cad. The breast tissue is heterogeneously dense. This may lower the sensitivity of mammography. No significant changes when compared with prior studies. ASSESSMENT: Negative, BI-RAD 1 RECOMMENDATION: Routine screening mammogram of both breasts in 1 year. Patient should continue monthly self breast exams. A negative report should not preclude additional follow up of suspicious palpable abnormalities.
== END | disposition home or self-care (01) ==
LOC: RADMAMWWP 11:04
PROVIDERS: ATTEND Internal Medicine
DX: Z12.31 Encounter for screening mammogram for malignant neoplasm of breast (principal); E78.5 Hyperlipidemia, unspecified; M54.9 Dorsalgia, unspecified; R42 Dizziness and giddiness
CPT/HCPCS: 77067; 80053; 80061; 84443; 85027

== ENCOUNTER → 2022-07-13 | Outpatient (CLI) | payer BC ==
--- NOTE | 2022-07-13 13:49 | US ---
EXAMINATION TYPE: US kidneys/renal and bladder DATE OF EXAM: 07/13/2022 COMPARISON: NONE CLINICAL HISTORY: Z12.31 SCREENING R10.9 UNSPECIFIED ABDOMINAL PAIN. EXAM MEASUREMENTS: Right Kidney: 9.1 x 3.6 x 4.8 cm Left Kidney: 9.5 x 5.5 x 4.3 cm Right Kidney: Nonsimple cyst measuring 1.1 x 1.0 x 1.1cm Left Kidney: No hydronephrosis or masses seen, somewhat obscured by overlying bowel gas Bladder: possible dependant debris There is no evidence for hydronephrosis at this point in time. No nephrolithiasis is seen. No kamla s are identified. The urinary bladder is distended. Bilateral ureteral jets are not seen. IMPRESSION: Suboptimal study. No hydronephrosis seen bilaterally.
--- NOTE | 2022-07-14 18:39 | MM ---
Reason for Exam: Screening (asymptomatic). Last mammogram was performed 1 year(s) and 6 month(s) ago. Patient History: Menarche at age 16. First Full-Term at age 19. Postmenopausal. Patient used Hormonal Contraceptives for 5 years. 1984, Benign Excisional Biopsy on the left side. Risk Values: Claire 5 year model risk: 1.5%. NCI Lifetime model risk: 6.5%. Prior Study Comparison: 04/08/2010 Bilateral Screening Mammogram, [facility]. 07/13/2016 Bilateral Screening Mammogram, [facility]. 01/09/2021 Bilateral Screening Mammogram, [facility]. Tissue Density: The breast tissue is heterogeneously dense. This may lower the sensitivity of mammography. Findings: Analyzed By CAD. There is no suspicious group of microcalcifications or new suspicious mass in either breast. Overall Assessment: Benign, BI-RAD 2 Management: Screening Mammogram of both breasts in 1 year. 1. Patient should continue monthly self breast exams. 2. A clinical breast exam by your physician is recommended on an annual basis. 3. This exam should not preclude additional follow-up of suspicious palpable abnormalities. Electronically signed and approved by: Shoaib Dunham M.D. Radiologist
== END | disposition home or self-care (01) ==
LOC: RADUSWWP 12:46
PROVIDERS: ATTEND Internal Medicine
DX: Z12.31 Encounter for screening mammogram for malignant neoplasm of breast (principal); Z78.0 Asymptomatic menopausal state; R10.9 Unspecified abdominal pain
CPT/HCPCS: 76770; 77063; 77067

== ENCOUNTER 2023-07-23 10:53 | Emergency (ER) | payer BC ==
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
[2023-07-23 11:19] VITALS: TEMP 98.2
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
[2023-07-23] MEDS ORDERED: DEXAMETHASONE SOD PHOSPHATE 10 MG/ML 1 ML VIAL IVP STA (12:03)
[2023-07-23] MEDS ORDERED: LIDOCAINE 4% PATCH TOPICAL ONE (12:03)
[2023-07-23] MEDS ORDERED: SODIUM CHLORIDE 0.9% 1,000 ML IV STA (12:03)
[2023-07-23] MEDS ORDERED: KETOROLAC 15 MG/ML 1 ML VIAL IVP STA ×2 (12:03→14:31)
[2023-07-23] MEDS ORDERED: METOCLOPRAMIDE 5 MG/ML 2 ML VIAL IVP STA (12:03)
[2023-07-23] MEDS ORDERED: diphenhydrAMINE 50 MG/ML 1 ML VIAL IVP STA (12:03)
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
[2023-07-23 13:16] LABS: Basophils % (A) 0 %; Eosinophils % (A) 0 %; HCT 36.7 % (34.0-46.0); HGB 12.1 gm/dL (11.4-16.0); Lymphocytes # (A) 1.2 k/uL (1.0-4.8); Lymphocytes % (A) 17 %; MCH 28.5 pg (25.0-35.0); MCHC 33.1 g/dL (31.0-37.0); MCV 86.2 fL (80.0-100.0); Mean Platelet Volume 7.4; Monocytes # (A) 0.4 k/uL (0-1.0); Monocytes % (A) 5 %; Neutrophils # (A) 5.4 k/uL (1.3-7.7); Neutrophils % (A) 76 %; Platelet Count 229 k/uL (150-450); RBC 4.26 m/uL (3.80-5.40); RDW 12.8 % (11.5-15.5); WBC 7.1 k/uL (3.8-10.6)
[2023-07-23 13:43] LABS: ALT 11 U/L (4-34); AST 23 U/L (14-36); African American GFR (CKD) >90 (>60 ml/min/1.73 sqM); Albumin 4.3 g/dL (3.5-5.0); Alkaline Phosphatase 54 U/L (38-126); Anion Gap 7 mmol/L; Blood Urea Nitrogen 18 mg/dL (7-17); Calcium 9.2 mg/dL (8.4-10.2); Carbon Dioxide 25 mmol/L (22-30); Chloride 106 mmol/L (98-107); Glucose 90 mg/dL (74-99); Non-African American GFR(CKD) >90 (>60 ml/min/1.73 sqM); Potassium 3.6 mmol/L (3.5-5.1); Sodium 138 mmol/L (137-145); Total Bilirubin 0.5 mg/dL (0.2-1.3); Total Protein 7.9 g/dL (6.3-8.2)
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
[2023-07-23] MEDS ORDERED: HYDROmorphone 0.5 MG/0.5 ML SYRINGE IVP STA (14:31)
[2023-07-23] MEDS ORDERED: ONDANSETRON 4 MG ODT STARTER PACK 2 TAB BTL PO STA (15:39)
[2023-07-23 15:46] VITALS: BP 128/68; PULSE 80; RESP 16
== END 2023-07-23 15:56 | disposition home or self-care (01) ==
LOC: EC 10:53
DX: M54.50 Low back pain, unspecified (principal); R51.9 Headache, unspecified; Z79.82 Long term (current) use of aspirin; Z20.822 Contact with and (suspected) exposure to COVID-19
CPT/HCPCS: 36415; 80053; 85025; 87636; 72100; 72125; 70496; 70450; 70498; 99284; 96374; 96375 ×4; 96361; J1200; J1100; J2765; J1885; S0119; J1170; Q9967

== ENCOUNTER → 2023-08-02 | Outpatient (CLI) | payer OTHER ==
--- NOTE | 2023-08-02 16:48 | NM ---
EXAMINATION TYPE: NM bone scan whole body DATE OF EXAM: 08/02/2023 COMPARISON: NONE HISTORY: Cervical radiculopathy Delayed whole-body scanning was performed following the injection of 23.2 mCi Tc 99m MDP. Images wer e acquired 5.25 hours post injection. FINDINGS: Couple of punctate areas of uptake are within the right knee most likely degenerative in nature. No suspicious radiotracer accumulation evident to suggest metastatic disease. Significant uptake with in the spine is not identified to suggest degenerative change. Cervical spine appears unremarkable. N o suspicious abnormality on spot imaging. IMPRESSION: 1. No suspicious cervical spine abnormality.
== END | disposition home or self-care (01) ==
LOC: RADNMMAIN 07:20
PROVIDERS: ATTEND Physical Medicine & Rehabilitation
DX: S32.010A Wedge compression fracture of first lumbar vertebra, initial encounter for closed fracture (principal); S39.012A Strain of muscle, fascia and tendon of lower back, initial encounter; M43.12 Spondylolisthesis, cervical region
CPT/HCPCS: 78306

== ENCOUNTER → 2023-08-18 | Outpatient (CLI) | payer OTHER ==
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
== END | disposition home or self-care (01) ==
LOC: RADMRIMAIN 10:40
PROVIDERS: ATTEND Internal Medicine
DX: G93.89 Other specified disorders of brain (principal); H93.13 Tinnitus, bilateral; R51.9 Headache, unspecified
CPT/HCPCS: 70553

== ENCOUNTER 2023-10-05 10:43 | Emergency (ER) | payer OTHER ==
[2023-10-05 11:23] VITALS: RESP 18
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
--- NOTE | 2023-10-05 12:21 | XR ---
EXAMINATION TYPE: XR chest 2V DATE OF EXAM: 10/05/2023 COMPARISON: 01/20/2020 HISTORY: Shortness of breath TECHNIQUE: Frontal and lateral views of the chest are obtained. FINDINGS: Scattered senescent parenchymal changes noted. No evidence for infiltrate. No evidence for atelectasis. Heart size is stable. Mediastinal structures are stable and grossly unremarkable. No evidence for hilar prominence. Degenerative changes dorsal spine. IMPRESSION: 1. No evidence for acute pulmonary disease.
[2023-10-05] MEDS: KETOROLAC 15 MG/ML 1 ML VIAL IM STA (12:25)
[2023-10-05 13:40] VITALS: BP 126/72; PULSE 101; TEMP 98.1
== END 2023-10-05 13:07 | disposition home or self-care (01) ==
LOC: EC 10:43
DX: J40 Bronchitis, not specified as acute or chronic (principal)
CPT/HCPCS: 71046; 87636; 96372; 99285

== ENCOUNTER → 2024-05-17 | Outpatient (CLI) | payer BC, MEDICARE ==
--- NOTE | 2024-05-22 09:09 | MM ---
Reason for Exam: Screening (asymptomatic). Last mammogram was performed 1 year(s) and 10 month(s) ago. Patient History: Menarche at age 16. First Full-Term at age 19. Postmenopausal. Patient used Hormonal Contraceptives for 5 years. 1984, Benign Excisional Biopsy on the left side. Risk Values: Claire 5 year model risk: 1.6%. NCI Lifetime model risk: 6.1%. Prior Study Comparison: 07/13/2016 Bilateral Screening Mammogram, [facility]. 01/09/2021 Bilateral Screening Mammogram, [facility]. 07/13/2022 Bilateral MG 3D screening mammo w/cad, [facility]. Tissue Density: The breasts are heterogeneously dense, which may obscure small masses. Findings: Analyzed By CAD. Right breast: There is no suspicious group of microcalcifications or new suspicious mass. Left breast: There is no suspicious group of microcalcifications or new suspicious mass. Overall Assessment: Negative, BI-RAD 1 Management: Screening Mammogram of both breasts in [address] [facility] will attempt to contact patient to return for supplemental views and ultrasound if indicated. Patient should continue monthly self-breast exams. A clinical breast exam by your physician is recommended on an annual basis. This exam should not preclude additional follow-up of suspicious palpable abnormalities. Note on Claire scores and lifetime risk: 1. A Claire score greater than 3% is considered moderate risk. If this is the case, consider specialist referral to assess eligibility for a risk reducing agent. 2. If overall lifetime risk for the development of breast cancer is 20% or higher, the patient may qualify for future screening with alternating mammogram and breast MRI. [facility], , 05/22/2024 9:05 AM. Electronically signed and approved by: Neal Hughes DO
== END | disposition home or self-care (01) ==
LOC: RADMAMWWP 08:53
PROVIDERS: ATTEND Internal Medicine
DX: Z12.31 Encounter for screening mammogram for malignant neoplasm of breast (principal); R92.333 Mammographic heterogeneous density, bilateral breasts; Z78.0 Asymptomatic menopausal state
CPT/HCPCS: 77063; 77067